=== PATIENT | female | born 1975 | race African-American/Black ===

== ENCOUNTER → 2016-07-01 17:27 | Outpatient (CLI) | payer MEDICAID ==
[2015-07-25 10:23] VITALS: BMI 33.3
[~2016-07-01 17:27] MED LIST: ATIVAN0.5 MG PO; HYDROCODON-ACE1 EAC7 PO; HYDROCODONE-APA1 TAB PO; LASIX20 MG PO; LIPITOR40 MG PO; PRAVACHOL20 MG PO
== END | disposition home or self-care (01) ==
LOC: D.MAMMO 13:00
DX: C50.112 Malignant neoplasm of central portion of left female breast (principal)

== ENCOUNTER → 2016-08-08 12:24 | Outpatient (CLI) | payer BC ==
[2015-07-25 10:23] VITALS: BMI 33.3
== END | disposition home or self-care (01) ==
LOC: D.US 07-10 10:00
DX: N93.9 Abnormal uterine and vaginal bleeding, unspecified (principal)

== ENCOUNTER → 2017-06-05 08:22 | Outpatient (CLI) | payer OTHER ==
[2015-07-25 10:23] VITALS: BMI 33.3
--- NOTE | 2017-06-10 15:46 | EC ---
PATIENT:GIRISH VELAZQUEZ DATE OF SERVICE: 06/05/17 SEX: F MEDICAL RECORD: [id number] DATE OF : 73 LOCATION:[facility] [place] AGE OF PATIENT: 41 ADMISSION DATE: 06/05/17 REFERRING PHYSICIAN: INTERPRETING PHYSICIAN: PAMELLA BRADLEY MD ECHOCARDIOGRAM REPORT ECHO CHARGES 4 ECHO COMPLETE CLINICAL DIAGNOSIS: EDEMA ECHOCARDIOGRAPHIC MEASUREMENTS (adult normal given) AC root (d.<3.7cm) 3.2 cm LV Septum d (<1.2 cm> 1.5 cm Valve Excursion 1.6 cm LV Septum (systole) 1.7 cm Left Atria (s.<4.0cm> 3.4 cm LVPW d(<1.2cm) 1.5 cm RV (d.<2.3cm) 3.4 cm LVPW (sytole) 1.7 cm LV diastole(<5.6CM) 4.3 cm MV E-F(>70mm/sec) cm LV systole 3.2 cm LVOT Diameter 2.1 cm MV exc.(>10mm) 2.1 cm Est.ejection fraction (50-75%) % Pericardial Effusion N DOPPLER: LVIT cm/sec A 70.0 cm/sec E 109 cm/sec LA cm/sec RVSP 17 mmHg LVOT 109 cm/sec AOP1/2T m/s Asc. Ao 121 cm/sec RVOT 68 cm/sec RA cm/sec PA 94 cm/sec AV Gradient Peak 5.90 mmHg AV Mean 2.86 mmHg AV Area 3.4 cm MV Gradient Peak 4.67 mmHg MV Mean 1.93 mmHg MV Area cm COMMENTS: Air Sampling And Monitoring: Bambi JARAMILLO Human Resources Support Specialist: 2 Dr. Garber TAPE# PACS DATE OF SERVICE: 06/05/2017 PROCEDURE: Echocardiogram. FINDINGS: 1. Left ventricular chamber size is within normal limits. Left ventricular systolic function is normal. Overall ejection fraction estimated at 55%. 2. Left atrium, right atrium, and right ventricular chamber sizes are within normal limits. 3. Valvular structures have normal structure and motion. ECHOCARDIOGRAM REPORT [id number] GIRISH VELAZQUEZ 4. Doppler interrogation reveals mild mitral regurgitation, trace tricuspid regurgitation. No other valvular insufficiency or stenosis. Pulmonary systolic pressure is normal estimated at 17 mmHg. 5. No evidence of pericardial effusion or left ventricular thrombus. TRANSINT:[id number] Voice Confirmation ID: [id number] DOCUMENT ID: [id number] PAMELLA BRADLEY MD at 1546 CC: [id number] DICTATION DATE: 06/05/171118 ADMINISTRATIVE HEARING OFFICER: 06/05/17 1133 DEP CLI 06/05/17 [place] [id number]
== END | disposition home or self-care (01) ==
LOC: D.ECHO 08:22
DX: R60.9 Edema, unspecified (principal)

== ENCOUNTER → 2017-07-09 15:09 | Outpatient (CLI) | payer OTHER ==
[2015-07-25 10:23] VITALS: BMI 33.3
== END | disposition home or self-care (01) ==
LOC: D.MAMMO 10:30
DX: C50.112 Malignant neoplasm of central portion of left female breast (principal)

== ENCOUNTER → 2017-09-23 12:17 | Outpatient (CLI) | payer OTHER ==
[2015-07-25 10:23] VITALS: BMI 33.3
[2017-09-23 12:41] LABS: HEMATOCRIT 41.2 % (36.0-48.0); MCH 30.2 pg (26.0-34.0); MCV 88.8 fL (80.0-100.0); MEAN PLATELET VOLUME 10.8 fL (7.4-10.4); RBC 4.64 10x6/uL (4.00-5.40); RDW 12.4 % (11.5-14.5); WBC 5.3 10x3/uL (4.8-10.8)
[2017-09-23 12:43] LABS: PLATELET COUNT 211 10x3/uL (130-400)
[2017-09-23 12:57] LABS: APTT 26.6 SECONDS (22.8-39.4); FIBRINOGEN 250 mg/dL (239-481)
[2017-09-23 12:58] LABS: D-DIMER-QUANTITATIVE < 0.27 ug/mLFEU (0.20-0.54)
[2017-09-23 13:21] LABS: LYMPHOCYTES 44 % (15-50); MONOCYTES 8 % (2-11); NEUTROPHILS 48 % (40-80); PLATELET ESTIMATE NORMAL
[2017-09-23 13:48] LABS: ALBUMIN 3.8 g/dL (3.4-5.0); ALKALINE PHOSPHATASE 62 U/L (46-116); ALT (SGPT) 23 U/L (10-68); BILIRUBIN - TOTAL 0.31 mg/dL (0.2-1.3); CALC OSMOLALITY 279 mosm/kg (275-300); CALCIUM 8.6 mg/dL (8.5-10.1); CARBON DIOXIDE 26.3 mmol/L (21.0-32.0); CHLORIDE - SERUM 105 mmol/L (98-107); CREATININE - SERUM 0.7 mg/dL (0.6-1.3); GLUCOSE 91 mg/dL (74-106); POTASSIUM - SERUM 4.6 mmol/L (3.5-5.1); PRO BNP 63 pg/mL (0-125); PROTEIN - SERUM 6.8 g/dL (6.4-8.2); SODIUM 141 mmol/L (136-145); UREA NITROGEN 10 mg/dL (7-18); eGFR NON AFRICAN AMERICAN > 90 mL/min (90-120)
[2017-09-23 14:51] LABS: INR 0.88 (0.85-1.17); PROTIME 11.6 SECONDS (11.6-15.0)
== END | disposition home or self-care (01) ==
LOC: D.LAB 12:17
PROVIDERS: Internal Medicine Hematology & Oncology
DX: C50.112 Malignant neoplasm of central portion of left female breast (principal); D68.59 Other primary thrombophilia

== ENCOUNTER 2018-07-12 08:00 | Outpatient (CLI) | payer BC ==
[2015-07-25 10:23] VITALS: BMI 33.3
== END 2018-07-12 09:00 | disposition home or self-care (01) ==
LOC: D.MAMMO 08:00
DX: C50.112 Malignant neoplasm of central portion of left female breast (principal)

== ENCOUNTER → 2019-06-28 09:27 | Outpatient (CLI) | payer OTHER ==
[2015-07-25 10:23] VITALS: BMI 33.3
== END | disposition home or self-care (01) ==
LOC: D.ECHO 06-27 09:26
PROVIDERS: ATTEND Internal Medicine Hematology & Oncology
DX: C50.112 Malignant neoplasm of central portion of left female breast (principal); E78.00 Pure hypercholesterolemia, unspecified

== ENCOUNTER → 2019-08-05 10:00 | Outpatient (CLI) | payer OTHER ==
[2015-07-25 10:23] VITALS: BMI 33.3
== END | disposition home or self-care (01) ==
LOC: D.MAMMO 07-07 09:30
PROVIDERS: ATTEND Internal Medicine Hematology & Oncology
DX: C50.112 Malignant neoplasm of central portion of left female breast (principal)

== ENCOUNTER → 2020-09-24 08:31 | Outpatient (CLI) | payer OTHER ==
[2015-07-25 10:23] VITALS: BMI 33.3
--- NOTE | 2020-09-25 08:48 | EC ---
PATIENT:GIRISH VELAZQUEZ DATE OF SERVICE: 09/24/20 SEX: F MEDICAL RECORD: [id number] DATE OF : 73 LOCATION:[facility] AGE OF PATIENT: 45 ADMISSION DATE: 09/24/20 REFERRING PHYSICIAN: INTERPRETING PHYSICIAN: BETHANY STEWARD MD ECHOCARDIOGRAM REPORT ECHO CHARGES 4 ECHO COMPLETE Date: 09/24/20 CLINICAL DIAGNOSIS: CHEMO PATIENT, ASSESS EF COMPARED TO LAST EXAM ECHOCARDIOGRAPHIC MEASUREMENTS (adult normal given) AC root (d.<3.7cm) 2.4 cm LV Septum d (<1.2 cm> 1.1 cm Valve Excursion 1.3 cm LV Septum (systole) 1.2 cm Left Atria (s.<4.0cm> 3.8 cm LVPW d(<1.2cm) 0.9 cm RV (d.<2.3cm) 3.0 cm LVPW (sytole) 1.0 cm LV diastole(<5.6CM) 4.9 cm MV E-F(>70mm/sec) cm LV systole 4.0 cm LVOT Diameter 1.7 cm MV exc.(>10mm) 1.0 cm Est.ejection fraction (50-75%) % DOPPLER: LVIT cm/sec A 77 cm/sec E 100 cm/sec LA cm/sec RVSP 23 mmHg LVOT 115 cm/sec AOP1/2T m/s Asc. Ao 111 cm/sec RVOT 57 cm/sec RA cm/sec PA 88 cm/sec AV Gradient Peak 4.9 mmHg AV Mean 3.0 mmHg AV Area 2.2 cm MV Gradient Peak 5.8 mmHg MV Mean 2.6 mmHg MV Area cm COMMENTS: Raw Material Handler: Georges ARTEAGA Paper Cutter: 3 Dr. Rendon TAPE# Pericardial Effusion N DATE OF SERVICE: Adequate 2D, color-flow imaging, spectral Doppler, and M-Mode FINDINGS: No LVH. LV internal dimensions are normal. Wall motion is normal. EF is greater than or equal to 55%. Aortic valve is tricuspid. No evidence of stenosis by Doppler interrogation. Left atrium is normal. Mitral valve shows no prolapse. Trace MR. Right side is grossly normal. Trace TR. TRANSINT:[id number] Voice Confirmation ID: [id number] DOCUMENT ID: [id number] ECHOCARDIOGRAM REPORT [id number] GIRISH VELAZQUEZ BETHANY STEWARD MD at 0848 CC: [id number] DICTATION DATE: 09/24/20 1316 NARROW FABRICS WEAVER: 09/24/20 2318 DEP CLI 09/24/20 [place] [id number] [place] [address]
== END | disposition home or self-care (01) ==
LOC: D.ECHO 08:31
PROVIDERS: ATTEND Internal Medicine Hematology & Oncology
DX: C50.112 Malignant neoplasm of central portion of left female breast (principal)